=== PATIENT | female | born 1940 | race Caucasian/White ===

== ENCOUNTER 2016-08-16 23:22 | Inpatient (IN) | payer OTHER, MEDICARE ==
--- NOTE | ~2016-08-16 | EKG ---
PATIENT: SHIMON RAMIREZ UNIT #: [id number] Ventricular Rate: 67 BPM Atrial Rate: 67 BPM P-R Interval: 160 ms QRS Duration: 124 ms Q-T Interval: 436 ms QTC Calculation(Bezet): 460 ms P [place]: 33 degrees Calculated R [place]: -45 degrees Calculated T [place]: 114 degrees Diagnosis Line: Normal sinus rhythm with sinus arrhythmia Diagnosis Line: Left bundle branch block Diagnosis Line: Abnormal ECG Diagnosis Line: No previous ECGs available Diagnosis Line: Confirmed by JOSE ALEJANDRO GOLDBERG MD ([id number]) on Diagnosis Line: 08/18/2016 8:21:05 AM INTERPRETING MD: YUSUF CASTILLO
--- NOTE | ~2016-08-16 | HP ---
Unit #: [id number] #: [id number] Patient: SHIMON RAMIREZ [id number] [address] [place], [place] [address] [id number] I MR#: [id number] NAME: SHIMON RAMIREZ ROOM: 565 Age: 75 Sex: F Admission Date: 08/17/2016 : 1940 Attending Physician: Noé Hatch M.D. Primary Care Physician: No Primary Care Physician HISTORY AND PHYSICAL CHIEF COMPLAINT Chest and back pain with congestive heart failure. HISTORY OF PRESENT ILLNESS This pleasant 75-year-old female with CAD, status post mitral valve repair, paroxysmal atrial fibrillation, rheumatoid arthritis is admitted for shortness of breath, chest and back pain. The patient has iron deficiency anemia due to AVMs in the colon and hemorrhoids. She required transfusion of two units of packed RBCs four days ago. Yesterday, she developed sudden pedal edema and shortness of breath with pain radiating from her left breast to her back associated with nausea. Called EMS who brought the patient to this facility where she had labored breathing. She was tachycardiac and hypertensive upon presentation. The patient was treated with aspiration, given one sublingual nitroglycerin, one inch of nitro paste, 40 mg of IV Lasix and BiPAP was applied. At this time, the patient is feeling much improved and I have asked for the BiPAP to be removed. First cardiac enzymes are negative. Her BNP is over 2,000 and chest x-ray is suspicious for congestive heart failure. PAST MEDICAL HISTORY 1. CAD status post PCI and stent following a [place] 2010. The patient also has a history of paroxysmal atrial fibrillation, status post mitral valve repair. 2. GERD. 3. Iron deficiency anemia. 4. Chronic kidney disease. 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 6. Rheumatoid arthritis. 7. AVMs in the colon, hemorrhoids causing bleeding. 8. Total abdominal hysterectomy. SOCIAL HISTORY The patient moved from [place], [place], to [place], [place], lives alone but her family lives close by. She stopped smoking in 1982, does not drink alcohol. FAMILY HISTORY CAD. ALLERGIES Peanuts, Xanax, Codeine, red dye. Unit #: [id number] #: [id number] Patient: SHIMON RAMIREZ HOME MEDICATIONS 1. Valtrex 500 mg daily. 2. Lasix 10 mg daily. The patient increases this to 20 mg around the time that she has transfused or receives iron infusions. 3. Prinivil 5 mg daily. 4. Metoprolol 25 mg b.i.d. 5. Relafen 500 mg b.i.d. 6. Prednisone 7.5 mg daily. 7. [place] 10/325 mg q.4 hours as needed. 8. Neurontin 600 mg t.i.d. 9. Aspirin 81 mg daily. 10. Iron 65 mg daily. 11. Prilosec 20 mg daily. 12. Pepcid 20 mg daily as needed. REVIEW OF SYSTEMS Notable for chest and back pain, shortness of breath, nausea, CAD, RFA, mitral valve repair, GERD, anemia, chronic kidney disease, cancer, rheumatoid arthritis, above-mentioned surgeries. All other systems are reviewed and otherwise negative. PHYSICAL EXAMINATION GENERAL APPEARANCE: A pleasant, 75-year-old female currently in no acute distress. VITAL SIGNS: Not yet been obtained. Initial heart rate 116, now is 76. Respirations were 48, now are 15. Initial blood pressure 163/115, now 130/69. HEENT: Eyes: PERRLA. Extraoculars are intact. Pharynx is benign. NECK: Supple without adenopathy or thyromegaly. CHEST: Crackles at the left base. CARDIAC: Normal S1, S2. No definite murmur. ABDOMEN: Bowel sounds are present. No hepatosplenomegaly, tenderness or masses. EXTREMITIES: Without edema. Pedal pulses are present. NEUROLOGIC: The patient is awake, alert, oriented. Cranial nerves are intact. Equal strength throughout. DIAGNOSTIC STUDIES LABORATORY: Hematocrit 35.4, normal white count, MCV and platelet count. Coags normal. Negative cardiac enzymes. SMA-7: Glucose 116, sodium 122. BNP 2,134. IMAGING: Chest x-ray: Bilateral interstitial lung markings and cardiomegaly probably an element of congestive heart failure. CARDIOVASCULAR: EKG shows a sinus rhythm, 897, left anterior fascicular block. One PVC noted. Poor R wave progression V1 through V5 and T wave inversions I and aVL. No previous EKG for comparison. ASSESSMENT 1. Congestive heart failure, possibly in relationship to recent transfusion with fluid overload versus ischemic given complaints of chest and back pain. 2. CAD status post PCI and stent x2. The patient is also status post mitral valve repair and has a history of paroxysmal atrial fibrillation, currently is in normal sinus rhythm. 3. Iron deficiency anemia requiring transfusion of two units of packed RBCs three days ago. Unit #: [id number] #: [id number] Patient: SHIMON RAMIREZ 4. Chronic kidney disease. 5. Rheumatoid arthritis. 6. GERD. 7. Status post resection of liposarcoma right forearm. 8. Likely hypervolemic hyponatremia. PLAN 1. Nitro paste. 2. IV Lasix, obtain Is and Os and daily weights. Repeat cardiac enzymes and ask Cardiology to see. We will also request an echo. 3. Obtain old records. 4. DVT prophylaxis. 5. Repeat labs in the morning after diuresis and we will request a TSH and free T4. Dictated by Brittany Alvarez M.D. AML/bd TD: 08/17/2016 07:16 JOB #: [id number] HISTORY AND PHYSICAL Page 1 of 1 X Brittany Alvarez MD X HISTORY AND PHYSICAL
--- NOTE | ~2016-08-16 | CR63 ---
[facility] A Service of [facility] & [facility] RADIOLOGY TEXT RESULTS PATIENT: SHIMON RAMIREZ LOCATION: [facility] 565-01 : 40 UNIT #: [id number] AGE: [address]: Noé Hatch MD SEX: F ORDER DR: [id number] [facility] [address]. [place], [place] [address] [id number] I MR#: [id number] Acc #: [id number] NAME: SHIMON RAMIREZ : 1940 SEX: F STUDY DATE/TIME: 08/18/2016 7:05 UNIT: [facility] ROOM: [facility] STUDY DESCRIPTION: CR Chest 2 View Attending Physician: Noé Hatch M.D. Ordering Physician: Noé Hatch M.D. Primary Care Physician: Primary Care Physician No MEDICAL IMAGING REPORT This report is preliminary unless electronic signature is present EXAM Chest PA and lateral, 08/18/2016 HISTORY Shortness of breath and lower extremity edema since 08/15/2016. Benign essential hypertension, atrial fibrillation, myocardial infarction, congestive heart failure. Followup pulmonary edema. FINDINGS The heart is enlarged but stable compared with 08/16/2016. There is near complete resolution of pulmonary edema. Small bilateral pleural effusions. No pneumothorax. IMPRESSION Near complete resolution of pulmonary edema compared with 08/16/2016. Stable cardiomegaly. Dictated by... Ez Mesa M.D. THIS IS AN ELECTRONICALLY VERIFIED REPORT Ez Mesa M.D. at 08/20/2016 8:02 AM JESSI/ashley TD: 08/18/2016 12:18 JOB #: [id number] MEDICAL IMAGING REPORT Page 1 of 1 COPY
--- NOTE | ~2016-08-16 | EKG ---
PATIENT: SHIMON RAMIREZ UNIT #: [id number] Ventricular Rate: 97 BPM Atrial Rate: 97 BPM P-R Interval: 156 ms QRS Duration: 118 ms Q-T Interval: 356 ms QTC Calculation(Bezet): 452 ms P [place]: 72 degrees Calculated R [place]: -48 degrees Calculated T [place]: 107 degrees Diagnosis Line: Sinus rhythm with occasional Premature ventricular Diagnosis Line: complexes Diagnosis Line: Left axis deviation Diagnosis Line: Septal infarct , age undetermined Diagnosis Line: T wave abnormality, consider lateral ischemia Diagnosis Line: Abnormal ECG Diagnosis Line: No previous ECGs available Diagnosis Line: Confirmed by JOSE ALEJANDRO GOLDBERG MD ([id number]) on Diagnosis Line: 08/18/2016 8:20:43 AM INTERPRETING MD: YUSUF CASTILLO
--- NOTE | ~2016-08-16 | CR72 ---
[facility] A Service of [facility] & [facility] RADIOLOGY TEXT RESULTS PATIENT: SHIMON RAMIREZ LOCATION: [facility] 565-01 : 40 UNIT #: [id number] AGE: [address]: Noé Hatch MD SEX: F ORDER DR: [id number] [facility] [address] [place], [place] [address] [id number] I MR#: [id number] Acc #: [id number] NAME: SHIMON RAMIREZ : 1940 SEX: F STUDY DATE/TIME: 08/16/2016 23:49 UNIT: [facility] ROOM: [facility] STUDY DESCRIPTION: CR Chest Single View Portable Attending Physician: Noé Hatch M.D. Ordering Physician: Gilmer Resendiz M.D. Primary Care Physician: No Primary Care Physician MEDICAL IMAGING REPORT This report is preliminary unless electronic signature is present EXAM Single view chest. INDICATION Shortness of air and edema for 1 day. FINDINGS Single, portable, AP view of the chest without comparison. Heart is enlarged. There is diffuse interstitial opacities in both lungs suggesting a component of interstitial edema. There is no focal consolidation. No large pleural effusion. No pneumothorax. There is severe arthrosis of the right shoulder. IMPRESSION Cardiomegaly and diffusely increased interstitial markings in both lungs. This likely represents a component of pulmonary edema. Dictated by... Tommy Hodges M.D. THIS IS AN ELECTRONICALLY VERIFIED REPORT Tommy Hodges M.D. at 08/17/2016 10:46 PM MASOOD/pablito TD: 08/17/2016 17:19 JOB #: [id number] MEDICAL IMAGING REPORT Page 1 of 1 COPY
--- NOTE | ~2016-08-16 | CO ---
Unit #: [id number] #: [id number] Patient: SHIMON RAMIREZ [id number] [facility] [address]. [place], [place] [address] [id number] I MR#: [id number] NAME: SHIMON RAMIREZ ROOM: 565 Age: 75 Sex: F Admission Date: 08/17/2016 : 1940 Attending Physician: Noé Hatch M.D. Primary Care Physician: Primary Care Physician No Consultation Date: 08/17/2016 CONSULTATION REPORT DICTATED FOR Dr. Marcos Stiles, [facility] Cardiology. REASON FOR CONSULT Congestive heart failure and chest pain. HISTORY OF PRESENT ILLNESS The patient is a 75-year-old white female, who recently moved here in 03/2016 from [place]. The patient has a history of coronary artery disease, status post PCI and stent x2 in 2010, no further records are available; history of mitral valve clipping last year; atrial fib prior to the mitral valve clipping that has since has been not recurrent; hypertension; hyperlipidemia; chronic kidney disease, stage 3; rheumatoid arthritis; iron deficiency anemia, status post 2 units of blood on Tuesday; AVM in the colon; hemorrhoid; [place] in 2010; DVT, on control years ago; remote tobacco abuse, quit in 1982. The patient presented to the [facility] Emergency Department on 08/16/2016 at 11:00 p.m. with complaints of shortness of air, back pain, chest pain, and lower extremity swelling. Vital signs in the ER were noted to be 163/115, respirations 48, pulse 116, sats were 99% on room air. The patient was given a baby aspirin, sublingual nitroglycerin, nitroglycerin paste to the chest, as well as some IV Lasix. The patient states that she received 2 units of blood on Tuesday, where she took additional Lasix. She states that on normal day, she takes 10 mg. On days that she gets a blood transfusion, she takes 20 mg. Yesterday, on Tuesday, she began to have lower extremity swelling as well as increased abdominal distention. The patient then last evening around 7:00 p.m., was eating dinner and began to have some left back scapular area squeezing and aching sensation that began to get stronger and stronger. She then began to start wheezing. She felt very short of breath and that is when she called EMS. The patient also noted some aching and pain under the left breast bone area. The patient states that she got to the ER, they gave her two nitroglycerin and that seemed to alleviate the pain. The patient has been on 20 mg of Lasix prior to three months ago; however, three months ago, she did get decreased to 10 mg a day due to her kidney function be abnormal. The patient also complained of some nausea when she was eating her supper, that started at the beginning of this episode. She denies any diaphoresis or syncope, palpitations or dizziness or lightheadedness. The patient has coronary artery disease and she has had a PCI [place] stent [place] [address] Lawson in [place], [place]. Those records are not Unit #: [id number] #: [id number] Patient: SHIMON RAMIREZ available, but have been requested. She also states that she has congestive heart failure, but does not recall if anyone has ever told her what her ejection fraction is. The patient states that since she moved here, she pretty much stays indoors. If she does go out to the grocery store, she rides around on the cart. She does not walk due to her rheumatoid arthritis and joint pain. She states that if she walks, she does not notice any type of chest pain, pressure or tightness, or shortness of breath since her mitral valve repair last year. Cardiology was asked to evaluate the patient for congestive heart failure as well as to workup the chest pain. PAST MEDICAL HISTORY 1. Coronary artery disease, status post PCI and stent x2 in 2010. No further records are available at this time. 2. Paroxysmal atrial fib last year, that has not been recurrent since her mitral valve repair last year. 3. History of MV clipping last year. 4. Hypertension. 5. Hyperlipidemia. 6. [place] in 2010. 7. Chronic kidney disease, stage 3. 8. Rheumatoid arthritis. 9. Reported CHF. 10. Iron deficiency anemia, status post 2 units of packed red cells on Tuesday. 11. AVM in the colon. 12. Hemorrhoids. 13. DVT, on control years ago. 14. Remote tobacco abuse, quit in 1982. PAST SURGICAL HISTORY Includes; 1. 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 2. Total abdominal hysterectomy. 3. Mitral valve repair last year. 4. Cardiac cath with stent in 2010, no records are available. SOCIAL HISTORY The patient quit smoking in 1982. She denies any alcohol abuse or other illicit drug abuse. FAMILY HISTORY The patient denies any kind of family history of coronary artery disease in her immediate family. REVIEW OF SYSTEMS A 10-point review of system is negative except for what is noted in the HPI. PHYSICAL EXAMINATION GENERAL: This is a 75-year-old white female, who is alert and oriented x3, in no apparent distress. VITAL SIGNS: Blood pressure is 128/72, temp 97.9, pulse 71, respirations 16. HEENT: Pupils are equal, round, and reactive. Oral mucosa is moist. Unit #: [id number] #: [id number] Patient: SHIMON RAMIREZ NECK: No lymphadenopathy. No thyromegaly. No carotid bruits. HEART: S1 and S2. Regular rate and rhythm. No S3 or S4. No clicks, no rubs, no murmurs. LUNGS: Diminished. ABDOMEN: Soft. Bowel sounds positive. Nontender. EXTREMITIES: 3+ pitting edema in bilateral lower extremities. NEUROLOGICAL: No neuro deficits noted. ALLERGIES Peanut, alprazolam, Codeine, and red dye. HOME MEDICATIONS Include valacyclovir 500 mg p.o. daily, Lasix 10 mg p.o. daily, Prinivil 5 mg p.o. daily, metoprolol tartrate 25 mg p.o. b.i.d., Relafen 500 mg p.o. b.i.d., prednisone 5 mg p.o. daily, Lortab 10/325 one tab p.o. q.4 hours as needed for pain, gabapentin 600 mg p.o. t.i.d., aspirin 81 mg p.o. daily, iron 65 mg p.o. daily, Prilosec 20 mg p.o. daily, Pepcid 20 mg p.o. as needed for acid reflux. DIAGNOSTIC STUDIES LABORATORY RESULTS: Include laboratory studies; troponin less than 0.05, then 0.27. TSH 0.85, free T4 1.45. Sodium 128, potassium 4.3, chloride 90, CO2 of 30, glucose 86, BUN 17, creatinine 0.8, GFR 72. AST 14, ALT 11, alkaline phosphatase 54. BNP 2991. White count 6.7, hemoglobin 9.7, hematocrit 29.4, platelets 216. IMAGING STUDIES: Chest x-ray, report is not dictated yet, but upon imaging review, it does appear the patient has pulmonary edema. CARDIOVASCULAR STUDIES: EKG showed normal sinus rhythm with a left bundle-branch block. No acute ST-T wave abnormalities are noted. IMPRESSION 1. History of coronary artery disease and stent with atypical chest pain that was relieved with nitroglycerin. 2. History of mitral valve repair. 3. Hypertension and hyperlipidemia. 4. Rheumatoid arthritis. 5. Anemia. 6. Possible congestive heart failure. PLAN We will trend cardiac enzymes x3 sets. We will rule out acute injury. A 2D echo will be obtained to evaluate LV function and valves. 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 We will hold anticoagulation with history of anemia that requires a blood transfusion. We will place on a strict I and O q.4 hours. If EF is reduced, we will place on a fluid restriction. We will increase IV Lasix to 20 mg IV q.12 hours and obtain chest x-ray in the morning. Dictated by... NELSON Garsia/munir TD: 08/17/2016 14:02 JOB #: [id number] Unit #: [id number] #: [id number] Patient: SHIMON RAMIREZ CONSULTATION REPORT Page 1 of 1 X X CONSULTATION REPORT
[2016-08-17] LABS: PROTHROMBIN TIME (PATIENT) 10.8 SECONDS (10.0-11.7)
[2016-08-17 00:04] LABS: BASOPHIL# 0.1 X10e3 (0-0.3); BASOPHIL% 0.7 % (0-2.5); EOSINOPHIL# 0.1 X10e3 (0-0.7); EOSINOPHIL% 0.9 % (0.0-7.0); HEMATOCRIT 35.4 % (35.0-45.0); HEMOGLOBIN 11.5 gm/dL (12.0-16.0); LYMPHOCYTE# 0.6 X10e3 (1.0-3.5); LYMPHOCYTE% 7.3 % (17.0-45.0); MEAN CELL VOLUME 85.7 FL (83-96); MEAN CORPUSCULAR HEMOGLOBIN 27.9 PG (28-34); MEAN CORPUSCULAR HGB CONC 32.6 g/dL (30-36); MEAN PLATELET VOLUME 9.2 FL (6.5-11.5); MONOCYTE# 0.6 X10e3 (0-1.0); MONOCYTE% 7.2 % (3.0-12.0); NEUTROPHIL# 7.2 X10e3 (1.5-7.1); NEUTROPHIL% 83.9 % (40-75); PLATELET COUNT 258 X10e3 (140-420); RED BLOOD COUNT 4.13 X10e (3.90-5.30); RED CELL DISTRIBUTION WIDTH 17.3 % (11.0-15.5); WHITE BLOOD COUNT 8.6 X10e3 (4.0-10.5)
[2016-08-17 00:05] LABS: DIFF IND NO
[2016-08-17 00:20] LABS: BUN/CREATININE RATIO 22.5; CALCIUM SERUM 8.2 mg/dL (8.4-10.2); CREATININE SERUM 0.8 mg/dL (0.6-1.4); GLOM FILT RATE Estimated 72.2 mL/min (>60); POTASSIUM 4.2 mmol/L (3.5-5.1)
[2016-08-17 01:06] LABS: POC - CKMB 3.8 ng/mL (0.0-7.9); POC - TROPONIN <0.05 ng/mL (<=0.05)
[2016-08-17] MEDS ORDERED: LASIX20 MG PO (01:30)
[2016-08-17] MEDS ORDERED: VALACYCLOVIR500 MG PO (01:30)
[2016-08-17] MEDS ORDERED: PRINIVIL5 MG PO (01:31)
[2016-08-17] MEDS ORDERED: METOPROLOL TAR25 MG PO (01:31)
[2016-08-17] MEDS ORDERED: RELAFEN500 MG PO (01:31)
[2016-08-17] MEDS ORDERED: PREDNISONE5 M1 PO (01:32)
[2016-08-17] MEDS ORDERED: LORTAB 10-3251 EACH PO (01:33)
[2016-08-17] MEDS ORDERED: ASPIRIN81 M2 PO (01:34)
[2016-08-17] MEDS ORDERED: GRALISE600 MG PO (01:34)
[2016-08-17] MEDS ORDERED: IRON18 MG PO (01:35)
[2016-08-17] MEDS ORDERED: PRILOSEC PO (01:35)
[2016-08-17] MEDS ORDERED: PEPCID AC20 M2 PO (01:36)
[2016-08-17 06:14] LABS: BASOPHIL# 0.1 X10e3 (0-0.3); BASOPHIL% 0.9 % (0-2.5); EOSINOPHIL# 0.1 X10e3 (0-0.7); EOSINOPHIL% 2.2 % (0.0-7.0); HEMATOCRIT 29.4 % (35.0-45.0); HEMOGLOBIN 9.7 gm/dL (12.0-16.0); LYMPHOCYTE# 0.8 X10e3 (1.0-3.5); MEAN CELL VOLUME 84.6 FL (83-96); MEAN CORPUSCULAR HEMOGLOBIN 27.9 PG (28-34); MEAN CORPUSCULAR HGB CONC 32.9 g/dL (30-36); MEAN PLATELET VOLUME 8.9 FL (6.5-11.5); MONOCYTE# 0.7 X10e3 (0-1.0); MONOCYTE% 10.2 % (3.0-12.0); NEUTROPHIL% 74.7 % (40-75); PLATELET COUNT 216 X10e3 (140-420); RED BLOOD COUNT 3.47 X10e (3.90-5.30); WHITE BLOOD COUNT 6.7 X10e3 (4.0-10.5)
[2016-08-17 06:26] LABS: DIFF IND NO
[2016-08-17 07:18] LABS: ALBUMIN SERUM 2.9 g/dL (3.5-5.0); BUN/CREATININE RATIO 21.25; CALCIUM SERUM 8.5 mg/dL (8.4-10.2); CREATININE SERUM 0.8 mg/dL (0.6-1.4); GLOM FILT RATE Estimated 72.2 mL/min (>60); POTASSIUM 4.3 mmol/L (3.5-5.1); PROTEIN TOTAL SERUM 5.8 g/dL (6.0-8.3); THYROID STIMULATING HORMONE 0.85 uIU/ml (0.34-5.60)
[2016-08-17 07:25] LABS: FREE THYROXIN (T4) 1.45 ng/dL (0.58-1.64)
[2016-08-17 07:59] LABS: CK TOTAL 55 IU/L (26-140)
[2016-08-18 07:03] LABS: BUN/CREATININE RATIO 26.25; CALCIUM SERUM 8.4 mg/dL (8.4-10.2); CREATININE SERUM 0.8 mg/dL (0.6-1.4); GLOM FILT RATE Estimated 72.2 mL/min (>60); MAGNESIUM 1.9 mg/dL (1.6-3.0); POTASSIUM 4.5 mmol/L (3.5-5.1)
[2016-08-19 06:06] LABS: HEMATOCRIT 28.7 % (35.0-45.0); HEMOGLOBIN 9.3 gm/dL (12.0-16.0); MEAN CELL VOLUME 85.4 FL (83-96); MEAN CORPUSCULAR HEMOGLOBIN 27.6 PG (28-34); MEAN CORPUSCULAR HGB CONC 32.3 g/dL (30-36); MEAN PLATELET VOLUME 9.4 FL (6.5-11.5); RED BLOOD COUNT 3.36 X10e (3.90-5.30); WHITE BLOOD COUNT 5.9 X10e3 (4.0-10.5)
[2016-08-19 07:13] LABS: CALCIUM SERUM 8.3 mg/dL (8.4-10.2); CREATININE SERUM 0.8 mg/dL (0.6-1.4); GLOM FILT RATE Estimated 72.2 mL/min (>60); MAGNESIUM 1.7 mg/dL (1.6-3.0); POTASSIUM 4.5 mmol/L (3.5-5.1)
[2016-08-19] MEDS ORDERED: ALDACTONE25 MG PO (17:21)
[2016-08-19] MEDS ORDERED: TOPROL XL PO (17:22)
== END 2016-08-19 18:39 | disposition home or self-care (01) | DRG 291 ==
LOC: CED 23:22 → CEDOF 08-17 01:59 → CED 08-17 01:59 → C5C 08-17 02:15 → CEDOF 08-17 02:15 → C5C 08-17 03:00 → CEDOF 08-17 03:00 → C5C 08-17 06:13
PROVIDERS: Emergency Medicine; Internal Medicine; Nurse Practitioner
PROC: B246YZZ Ultrasonography of Right and Left Heart using Other Contrast (ICD-10-PCS; principal; 2016-08-17)
DX: I13.0 Hypertensive heart and chronic kidney disease with heart failure and stage 1 through stage 4 chronic kidney disease, or unspecified chronic kidney disease (principal); I50.23 Acute on chronic systolic (congestive) heart failure; E87.1 Hypo-osmolality and hyponatremia; I48.0 Paroxysmal atrial fibrillation; I27.2 Other secondary pulmonary hypertension; I47.1 Supraventricular tachycardia; N18.9 Chronic kidney disease, unspecified; I25.10 Atherosclerotic heart disease of native coronary artery without angina pectoris; Z95.5 Presence of coronary angioplasty implant and graft; M06.9 Rheumatoid arthritis, unspecified; K21.9 Gastro-esophageal reflux disease without esophagitis; Z90.710 Acquired absence of both cervix and uterus; Z88.5 Allergy status to narcotic agent; Z88.0 Allergy status to penicillin; Z91.041 Radiographic dye allergy status; Z79.82 Long term (current) use of aspirin; Z79.51 Long term (current) use of inhaled steroids; I44.7 Left bundle-branch block, unspecified; D50.9 Iron deficiency anemia, unspecified; G47.33 Obstructive sleep apnea (adult) (pediatric); I08.1 Rheumatic disorders of both mitral and tricuspid valves
CPT/HCPCS: 36415; 71010; 71020; 80048; 80053; 82550; 82553; 82947; 83735; 83880; 84439; 84443; 84484; 85025; 85027; 85610; 85730; 93005; 93306; 94660; 94760; 96374; 97161; 97165; 99291; G8978-GP; G8979-GP; G8980-GP; G8987-GO; G8988-GO; G8989-GO; J1650; J1940